=== PATIENT | male | born 1945 | race Hispanic/Latino ===

== ENCOUNTER 2016-08-07 10:22 | Day surgery (SDC) | payer MEDICARE, OTHER ==
[2016-08-02 08:18] VITALS: BMI 20.5
[2016-08-07 10:41] LABS: ADD MANUAL DIFF? NO
[2016-08-07] MEDS ORDERED: Glucagon Recombinant 1 mg Inj ONE (10:43)
[2016-08-07] MEDS ORDERED: Iohexol 240 (50 ml) ONE (10:43)
[2016-08-07] MEDS ORDERED: Indomethacin 50 MG Suppository PR ONE (10:44)
[2016-08-07 10:48] LABS: BASO # 0.03 K/mm3 (0.0-2.0); BASO % 0.4 % (0.0-3.0); EOS # 0.1 (0.0-0.7); EOS % 1.5 % (1.5-5.0); GRAN # 5.18 (1.4-6.5); GRAN % 63.8 % (50.0-68.0); HEMATOCRIT 41.6 % (42.0-52.0); LYMPH # 2.2 (1.2-3.4); LYMPH % 27.4 % (22.0-35.0); MEAN CORPUSCULAR HEMOGLOBIN 30.1 pg (25.0-35.0); MEAN CORPUSCULAR HGB CONC 34.6 g/dl (31.0-37.0); MEAN PLATELET VOLUME 10.1 fl (7.0-11.0); MONO # 0.6 (0.1-0.6); MONO % 6.9 % (1.0-6.0); PLATELET COUNT 261 10^3/uL (120.0-450.0); RED CELL DISTRIBUTION WIDTH 13.8 % (11.5-14.5); WHITE BLOOD COUNT 8.1 10^3/ul (4.5-11.0)
[2016-08-07 10:56] LABS: INR 1.06 (0.93-1.08); PARTIAL THROMBOPLASTIN TIME 25.7 Seconds (23.7-30.8)
[2016-08-07 11:00] LABS: ALB/GLOB RATIO 1.2 (1.1-1.8); ALKALINE PHOSPHATASE 95 U/L (38-133); ALT/SGPT 34 U/L (7-56); AST/SGOT 24 U/L (15-59); BILIRUBIN,TOTAL 0.6 mg/dL (0.2-1.3); BLOOD UREA NITROGEN 10 mg/dL (7-21); CALCIUM 8.8 mg/dL (8.4-10.5); CARBON DIOXIDE 29 mmol/L (21-33); CHLORIDE 101 mmol/L (98-107); GFR AFRICAN-AMERICAN > 60; GLUCOSE,RANDOM 91 mg/dL (70-110); POTASSIUM 3.9 mmol/L (3.6-5.0); SODIUM 137 mmol/L (132-148); TOTAL PROTEIN 7.1 g/dL (5.8-8.3)
[2016-08-07] MEDS ORDERED: Propofol 10 mg/ml Inj (20 ML) ONE (11:07)
[2016-08-07] MEDS ORDERED: Midazolam 2 MG/2 ML VIAL ONE (11:08)
[2016-08-07] MEDS ORDERED: Rocuronium 10 mg/ml (5 ml) ONE (11:08)
[2016-08-07] MEDS ORDERED: cefTRIAXone (Rocephin) 1 gm Inj ONE (11:25)
[2016-08-07] MEDS ORDERED: Sevoflurane - Inhalation Anesthetic Liq (250 ml) ONE (11:57)
[2016-08-07] MEDS ORDERED: Neostigmine Methylsulfate 3mg/3ml Syringe IV ONE (12:12)
[2016-08-07 13:03] VITALS: RESP 16
[2016-08-07 14:57] VITALS: BP 150/74; PULSE 63; TEMP 98.2; O2SAT 97
--- NOTE | 2016-08-10 11:09 | RAD ---
PROCEDURE: ERCP. HISTORY: R/O OBSTRUCTION COMPARISON: 07/18/2016. MRCP TECHNIQUE: Submitted images from the current procedure: 2.0 FINDINGS: 2 images submitted. Dilated common bile duct. Dilated left biliary system. Nondiagnostic assessment of right bile ducts or distal common duct. IMPRESSION: Less than 1 hr fluoroscopic time utilized during performance of the procedure.
== END 2016-08-07 14:48 | disposition home or self-care (01) ==
LOC: ENDO 10:22
PROVIDERS: ATTEND Internal Medicine
DX: K80.50 Calculus of bile duct without cholangitis or cholecystitis without obstruction (principal); K91.89 Other postprocedural complications and disorders of digestive system; Y83.2 Surgical operation with anastomosis, bypass or graft as the cause of abnormal reaction of the patient, or of later complication, without mention of misadventure at the time of the procedure; Z98.0 Intestinal bypass and anastomosis status; Z87.11 Personal history of peptic ulcer disease
CPT/HCPCS: 36415; 43255; 43262; 43264; 74330; 80053; 85025; 85610; 85730; C1729; J0171; J0696; J1610; J2001; J2250; J2405; J2704; J2710; J3010; J7030; J7040; Q9966